=== PATIENT | female | born 1975 | race Caucasian/White ===

== ENCOUNTER → 2019-06-23 | Outpatient (CLI) | payer BC ==
[2019-06-23 09:29] LABS: BASOPHILS % 0.3 % (0.0-2.0); HEMATOCRIT. 40.6 % (36.0-48.0); HEMOGLOBIN. 13.5 g/dL (12.0-16.0); LYMPHOCYTES % 18.9 % (20.0-50.0); MEAN CORPUSCULAR HEMOGLOBIN 26.3 pg (28.0-32.0); MEAN CORPUSCULAR VOLUME 78.9 fL (81.0-99.0); MEAN PLATELET VOLUME 7.3 fl (7.4-10.4); MONOCYTES % 6.7 % (2.0-8.0); NEUTROPHILS % 74.1 % (40.0-76.0); PLATELET 410 x1000/uL (130-400); RED BLOOD CELL COUNT 5.14 mill/uL (4.2-5.4); RED CELL DISTRIBUTION WIDTH 15.2 % (11.6-14.6)
[2019-06-23 09:31] LABS: CHLORIDE 105 mEq/L (98-107)
[2019-06-23 09:39] LABS: HDL CHOLESTEROL 65 mg/dL (40-59); LDL CHOLESTEROL 102 mg/dL (5-100)
[2019-06-23 09:40] LABS: T4 FREE 1.15 ng/dL (0.76-1.46)
[2019-06-23 10:08] LABS: VITAMIN B12 SERUM 499 pg/mL (211-911)
[2019-06-23 10:15] LABS: CLARITY URINE CLOUDY (CLEAR); COLOR URINE YELLOW (YELLOW); KETONES URINE NEGATIVE (NEGATIVE); LEUKOCYTE ESTERASE URINE NEGATIVE (NEGATIVE); NITRITE URINE NEGATIVE (NEGATIVE); OCCULT BLOOD URINE NEGATIVE (NEGATIVE); PH URINE 5.5 (4.5-8.0); PROTEIN URINE NEGATIVE (NEGATIVE); SPECIFIC GRAVITY URINE 1.033 (1.005-1.030); UROBILINOGEN URINE 0.2 E.U./dL (0.2-1.0)
[2019-06-24 05:09] LABS: HIV SCREEN 4G Non Reactive (Non Reactive); THYROID PEROXIDASE ANTIBODY 7 IU/mL (0-34); VITAMIN D 25-OH 15.5 ng/mL (30.0-100.0)
[2019-06-25 04:10] LABS: NEISSERIA GONORRHOEAE NAA Negative (Negative)
== END | disposition home or self-care (01) ==
LOC: LAB 06-22 10:33
PROVIDERS: ATTEND Family Medicine
DX: Z13.220 Encounter for screening for lipoid disorders (principal); Z13.29 Encounter for screening for other suspected endocrine disorder; Z11.3 Encounter for screening for infections with a predominantly sexual mode of transmission; R53.83 Other fatigue
CPT/HCPCS: 36415; 80053; 80061; 81003; 82306; 82607; 82746; 83036; 84439; 84443; 84481; 85025; 86376; 86592; 86695; 86696; 86803; 87389; 87491; 87591

== ENCOUNTER → 2019-07-21 | Outpatient (CLI) | payer BC | END | disposition home or self-care (01) | LOC: MRI 10:55 | PROVIDERS: ATTEND Psychiatry & Neurology Neurology | DX: G51.0 Bell's palsy (principal) | CPT/HCPCS: 70551 ==

== ENCOUNTER → 2021-08-02 | Outpatient (CLI) | payer BC ==
[2021-08-02 08:03] LABS: BASOPHILS % 0.5 % (0.0-2.0); HEMATOCRIT. 36.7 % (36.0-48.0); HEMOGLOBIN. 12.2 g/dL (12.0-16.0); LYMPHOCYTES % 28.4 % (20.0-50.0); MEAN CORPUSCULAR HEMOGLOBIN 25.5 pg (28.0-32.0); MEAN CORPUSCULAR VOLUME 76.5 fL (81.0-99.0); MEAN PLATELET VOLUME 6.8 fl (7.4-10.4); MONOCYTES % 6.7 % (2.0-8.0); NEUTROPHILS % 63.4 % (40.0-76.0); PLATELET 360 x1000/uL (130-400); RED CELL DISTRIBUTION WIDTH 15.4 % (11.6-14.6)
[2021-08-02 08:22] LABS: CHLORIDE 105 mEq/L (98-107)
[2021-08-02 08:35] LABS: CLARITY URINE CLEAR (CLEAR); COLOR URINE YELLOW (YELLOW); KETONES URINE NEGATIVE (NEGATIVE); LEUKOCYTE ESTERASE URINE NEGATIVE (NEGATIVE); NITRITE URINE NEGATIVE (NEGATIVE); OCCULT BLOOD URINE NEGATIVE (NEGATIVE); PROTEIN URINE NEGATIVE (NEGATIVE); SPECIFIC GRAVITY URINE 1.023 (1.005-1.030); UROBILINOGEN URINE 0.2 E.U./dL (0.2-1.0)
[2021-08-02 08:43] LABS: HDL CHOLESTEROL 49 mg/dL (40-59); LDL CHOLESTEROL 108 mg/dL (5-100)
[2021-08-02 08:55] LABS: VITAMIN B12 SERUM 466 pg/mL (211-911)
[2021-08-03 06:10] LABS: THYROID PEROXIDASE ANTIBODY < 8 IU/mL (0-34); VITAMIN D 25-OH 22.1 ng/mL (30.0-100.0)
== END | disposition home or self-care (01) ==
LOC: LAB 07:38
PROVIDERS: ATTEND Family Medicine
DX: Z00.00 Encounter for general adult medical examination without abnormal findings (principal); I10 Essential (primary) hypertension
CPT/HCPCS: 36415; 80053; 80061; 81003; 82306; 82607; 83036; 84443; 84481; 85025; 86376

== ENCOUNTER → 2021-10-25 | Outpatient (CLI) | payer BC ==
[2021-10-25 13:13] LABS: TOTAL IRON BINDING CAPACITY 408 ug/dL (250-450)
== END | disposition home or self-care (01) ==
LOC: LAB 12:37
PROVIDERS: ATTEND Family Medicine
DX: D50.9 Iron deficiency anemia, unspecified (principal)
CPT/HCPCS: 36415; 82728; 83540; 83550